=== PATIENT | male | born 1945 | race Caucasian/White ===

== ENCOUNTER 2018-05-05 20:04 | Emergency (ER) | payer OTHER ==
[~2018-05-05] VITALS: Ht 177.8 cm; Wt 86.2 kg
[2018-05-05 20:22] VITALS: Ht 177.8 cm; Wt 86.2 kg
[2018-05-05 20:58] LABS: BASOPHIL % 0.3 % (0-2); PLATELET COUNT 250 x10^3mcL (130-400); RED CELL DISTRIBUTION WIDTH 13.3 % (11.5-14.5)
[2018-05-05] MEDS ORDERED: FOL1 PO (21:28)
[2018-05-05] MEDS ORDERED: CANDESARTAN PO (21:29)
[2018-05-05] MEDS ORDERED: NOR10 PO (21:30)
[2018-05-05] MEDS ORDERED: METOPROLOL SUC100 M2 PO (21:30)
[2018-05-05] MEDS ORDERED: CLOPIDOGREL75 M1 PO (21:31)
[2018-05-05 21:57] LABS: CALCIUM 9.2 mg/dL (8.5-10.1); CHLORIDE SERUM 99 mmol/L (98-107); GLUCOSE SERUM 104 mg/dL (74-106); POTASSIUM SERUM 3.6 mmol/L (3.5-5.1); SODIUM SERUM 138 mmol/L (136-145)
[2018-05-05 22:02] LABS: ALKALINE PHOSPHATASE 135 U/L (46-116); AST/SGOT 20 U/L (15-37); BILIRUBIN TOTAL 0.79 mg/dL (0.20-1.00); TOTAL PROTEIN, SERUM 7.1 g/dL (6.4-8.2)
[2018-05-05 22:12] LABS: ALT/SGPT 10 U/L (16-63)
[2018-05-05 22:53] LABS: microscopic required? YES; urine erythrocyte 1+ (NEGATIVE)
[2018-05-06 00:17] VITALS: BP 159/89
== END 2018-05-06 00:17 | disposition home or self-care (01) ==
LOC: ED 20:04
PROVIDERS: Emergency Medicine
DX: S32.029A Unspecified fracture of second lumbar vertebra, initial encounter for closed fracture (principal); Z87.09 Personal history of other diseases of the respiratory system; X58.XXXA Exposure to other specified factors, initial encounter; Y93.89 Activity, other specified; Y92.89 Other specified places as the place of occurrence of the external cause; Y99.8 Other external cause status
CPT/HCPCS: J2270; J7030; Q0162